=== PATIENT | male | born 1985 | race Caucasian/White ===

== ENCOUNTER 2019-06-14 12:15 | Emergency (ER) | payer OTHER ==
[~2019-06-14] VITALS: Ht 195.6 cm; Wt 90.7 kg
--- NOTE | 2019-06-14 12:50 | NUR ---
CALLED IN WAITING ROOM. NO RESPONSE.
[2019-06-14 13:31] VITALS: BP 133/80
--- NOTE | 2019-06-14 13:31 | NUR ---
PT BIB SELF C/O LEFT EYE PAIN, WORK AT THE [employer] WENT TO HIS EYE, PT IS AAOX4, NOT IN RESPIRATORY DISTRESS, V/S STABLE, KEPT RESTED AND COMFORTABLE, WILL CONTINUE TO MONITOR.
[2019-06-14] MEDS ORDERED: FLUORESCEIN SODIUM OPHTH 1 EA STRIP ONE (14:42)
[2019-06-14] MEDS: TETRAcaine 5 ML BOTTLE LEFTEYE ONE (15:05)
[2019-06-14] MEDS: IBUPROFEN 400 MG TABLET PO ONE (15:28)
--- NOTE | 2019-06-14 15:28 | NUR ---
Patient discharged to home in stable condition. Written and verbal after care instructions given. Patient verbalizes understanding of instruction.
== END 2019-06-14 15:29 | disposition home or self-care (01) ==
LOC: ER 12:15
DX: T15.02XA Foreign body in cornea, left eye, initial encounter (principal); Z60.2 Problems related to living alone; X58.XXXA Exposure to other specified factors, initial encounter; Y93.89 Activity, other specified; Y92.89 Other specified places as the place of occurrence of the external cause; Y99.0 Civilian activity done for income or pay